=== PATIENT | male | born 1955 | race Caucasian/White ===

== ENCOUNTER 2019-05-25 06:06 | Emergency (ER) | payer SELFPAY ==
[2019-05-25] MEDS ORDERED: FAMOTIDINE IV PREMIX 50 ML IVPB ONE (06:29)
[2019-05-25] MEDS: methylPREDNISolone SODIUM SUC 125 MG/2 ML VIAL IV ONE (06:31)
[2019-05-25] MEDS: EPINEPHrine HCL AMP 1 MG/ML AMP IM ONE (06:31)
[2019-05-25] MEDS: FAMOTIDINE IV PREMIX 20 MG in PREMIX BAG 1 BAG IVPB ONE (06:32)
--- NOTE | 2019-05-25 06:32 | ED.PDOC ---
History of Present Illness - General Chief Complaint: Allergic Reaction Stated Complaint: swollen tongue Time Seen by Provider: 05/25/19 06:07 - History of Present Illness Initial Comments: Patient presents for evaluation of angioedema that started around midnight. Initially was on lateral margin of left side of tongue and now has progressed to entire tongue and working posteriorly. He has had difficulty tolerating secretions from the swelling. States his breathing is currently okay. Does take lisinopril. States that this has happened once before. Denies any other complaints. Allergies/Adverse Reactions: Allergies NO KNOWN ALLERGY Allergy (Verified 03/24/15 08:06) Home Medications: Ambulatory Orders Hctz 25 mg/Triamterene 37.5 mg [Maxzide-25] 1 ea PO DAILY 03/20/15 Lisinopril 20 mg PO BID 03/20/15 Lovastatin 20 mg PO BEDTIME 03/20/15 Metformin HCl [Metformin HCl ER] 500 mg PO DAILY 03/20/15 Review of Systems - Review of Systems Unable to Obtain Due To: clinical condition Past Medical History (General) - Patient Medical History Hx Cardiac Disorders: - carlee cholesterol Hx Hypertension: Yes Hx Diabetes: Yes - Vaccination History Hx Tetanus, Diphtheria Vaccination: - unknown Hx Influenza Vaccination: No Hx Pneumococcal Vaccination: No - Social History Hx Tobacco Use: Yes Hx Alcohol Use: Yes Hx Substance Use: No Hx Substance Use Treatment: No Hx Depression: No - Female History Patient : No Family Medical History - Family History Mother Family History: Unknown Physical Exam - Physical Exam General Appearance: Alert, Obvious distress, Ill Appearing Eyes, Ears, Nose, Throat Exam: other - Angioedema involving entire tongue. spitting secretions Neck: full range of motion, supple Respiratory: chest non-tender, lungs clear, normal breath sounds, no respiratory distress, no accessory muscle use Cardiovascular/Chest: regular rate, rhythm, no edema, no gallop, no JVD Gastrointestinal/Abdominal: non tender, soft Rectal Exam: deferred Neurologic: alert, normal mood/affect, oriented x 3 Progress - Progress Progress: 05/25/19 06:30 Patient presented for evaluation of tongue swelling and difficulty tolerating secretions. He is saturating well on room air however he is not tolerating secretions concerning for progressive worsening of the angioedema (likely SANDY-I induced). Discussed immediate transfer for ICU monitoring. Will not intubate as airway is protected at this time and large tongue will likely occlude airway. Has larger neck circumference making high risk intubation. Would be emergent cricothyroidomy if necessary. No anesthesia or surgery in house at this time. Patient discussed with ER Physician in [place], who accepts patient. [facility] contacts. IM epi, Solumedrol IV and Pepcid IV ordered. Patient updated on plan of care. Will transfer for definitive management and ICU monitoring. Departure - Departure Clinical Impression: Angioedema Qualifiers: Encounter type: initial encounter Qualified Code(s): T78.3XXA - Angioneurotic edema, initial encounter Time of Disposition: 06:32 Disposition: Transfer to Hospital Condition: Fair Departure Forms: ED Discharge - Pt. Copy, Patient Portal Self Enrollment Referrals: Juan Childs III, MD [Primary Care Provider] - 1-2 Weeks Home Medications: Ambulatory Orders Hctz 25 mg/Triamterene 37.5 mg [Maxzide-25] 1 ea PO DAILY 03/20/15 Lisinopril 20 mg PO BID 03/20/15 Lovastatin 20 mg PO BEDTIME 03/20/15 Metformin HCl [Metformin HCl ER] 500 mg PO DAILY 03/20/15 Comments: Ryne Peguero D.O[facility] #[id number]
[2019-05-25 06:44] VITALS: TEMP 96.6
[2019-05-25 07:08] VITALS: BP 152/103; O2SAT 97
== END 2019-05-25 07:09 | disposition short-term general hospital (02) ==
LOC: ER 06:06
DX: T78.3XXA Angioneurotic edema, initial encounter (principal); R13.10 Dysphagia, unspecified; E78.00 Pure hypercholesterolemia, unspecified; I10 Essential (primary) hypertension; E11.9 Type 2 diabetes mellitus without complications; Z87.891 Personal history of nicotine dependence; Z79.84 Long term (current) use of oral hypoglycemic drugs; Z79.899 Other long term (current) drug therapy
CPT/HCPCS: J2930; J3490

== ENCOUNTER 2019-07-26 10:10 | Inpatient (IN) | payer SELFPAY ==
[2019-07-26] MEDS ORDERED: IPRATROPIUM/ALBUTEROL 3 ML VIAL NEB ONE (10:19)
--- NOTE | 2019-07-26 10:23 | ED.PDOC ---
History of Present Illness - General Time Seen by Provider: 07/26/19 10:18 Source: patient, Vital Signs reviewed Additional Information: this is a 63 year old male, with history of high blood pressure, and bordeline diabetic also patient is a former smoker patient presents to the ER with shortness of breath patient stated that he has been coughing for the past 3 days, low grade fever but no chills patient also endorsing that he cant lay flat he is concerned about possible pneumonia patient stated that he retained fluids no travels and no sick contacts no flu shot this year - History of Present Illness Timing/Duration: other - 3 days Worsening Factors: nothing Associated Symptoms: cough, fever/chills, shortness of breath Respiratory Risk Factors: no cause identified Allergies/Adverse Reactions: Allergies Lisinopril Allergy (Verified 05/25/19 06:34) Hydrocodone Adverse Reaction (Verified 07/26/19 10:30) Home Medications: Ambulatory Orders Hctz 25 mg/Triamterene 37.5 mg [Maxzide-25] 1 ea PO DAILY 03/20/15 Lisinopril 20 mg PO BID 03/20/15 Lovastatin 20 mg PO BEDTIME 03/20/15 Metformin HCl [Metformin HCl ER] 500 mg PO DAILY 03/20/15 Amlodipine Besylate 2.5 mg PO DAILY 05/25/19 Carvedilol 25 mg PO DAILY 05/25/19 Gabapentin [Neurontin] 600 mg PO DAILY 05/25/19 Omeprazole 10 mg PO 05/25/19 Review of Systems - Review of Systems Constitutional: States: no symptoms reported EENTM: States: no symptoms reported. Denies: eye pain, blurred vision, tearing, double vision, ear pain, ear discharge, nose pain, nose congestion, throat pain, throat swelling, mouth pain, mouth swelling Respiratory: States: cough, orthopnea, short of breath Cardiology: Denies: chest pain, edema, palpitations, syncope Gastrointestinal/Abdominal: Denies: abdominal pain, constipation, diarrhea, nausea, vomiting Genitourinary: Denies: discharge, dysuria, frequency, hematuria, pain Musculoskeletal: Denies: back pain, gout, joint pain, joint swelling, muscle pain, neck pain Skin: Denies: change in color, change in hair/nails, dryness, lesions, lumps, rash Neurological: Denies: emotional problems, headache, numbness, paresthesia, pre- existing deficit, tingling, tremors, weakness Endocrine: Denies: excessive sweating, flushing, intolerance to cold, intolerance to heat, increased hunger, increased thirst, increased urine, unexplained weight gain, unexplained weight loss Hematologic/Lymphatic: Denies: blood clots, easy bleeding, easy bruising, swollen glands Past Medical History (General) - Patient Medical History Hx Cardiac Disorders: - carlee cholesterol Hx Hypertension: Yes Hx Diabetes: Yes Hx Cancer: Yes - Skin - Vaccination History Hx Tetanus, Diphtheria Vaccination: - unknown Hx Influenza Vaccination: No Hx Pneumococcal Vaccination: No - Social History Hx Tobacco Use: Yes Hx Alcohol Use: Yes Hx Substance Use: No Hx Substance Use Treatment: No Hx Depression: No - Female History Patient : No Family Medical History - Family History Mother Family History: Unknown Physical Exam - Physical Exam General Appearance: Alert, Well Developed, Well Groomed, Well Hydrated, Well Nourished Eye Exam: bilateral normal ENT Exam: normal ENT inspection, hearing grossly normal, TMs normal Neck: non-tender, full range of motion, supple, normal inspection, trachea midline Respiratory: no respiratory distress, no accessory muscle use, rhonchi - left lung field Cardiovascular/Chest: normal peripheral pulses, regular rate, rhythm, no edema, no gallop, no JVD, no murmur Gastrointestinal/Abdominal: normal bowel sounds, non tender, soft, no organomegaly, no pulsatile mass Neurologic: community director II-XII nml as tested, no motor/sensory deficits, alert, normal mood/affect, oriented x 3 Skin Exam: normal color, warm/dry Progress - Progress Progress: 07/26/19 10:54 patient is able to speak in long sentences patient doesnt appear toxic. I will ordered duoneb, labs, flu test and chest x rays patient ekg showed normal sinus rhythm with no evidence of acute ischemia and a heart rate of 89 07/26/19 11:44 i was looking at patient labs work and it seemed that patient has some sort of acute kidney injury. my initial plan was to treat patient as c copd exacerbation or since patient is on SANDY inhibitors as a culprit for patient coughs but after looking at the cmp I decided to consult with the hospitalist patient finally told me that some years ago his suffered from Pneumonia and that he developed renal failure as but that this kidney were great but i told him that his creatinine looks worse than the last time that he was seen here patient will be admitted Departure - Departure Clinical Impression: Cough due to SANDY inhibitor Renal failure Qualifiers: Renal failure chronicity: acute on chronic Acute renal failure type: unspecified Chronic kidney disease stage: unspecified stage Qualified Code(s): N17.9 - Acute kidney failure, unspecified; N18.9 - Chronic kidney disease, unspecified COPD (chronic obstructive pulmonary disease) Qualifiers: COPD type: unspecified COPD Qualified Code(s): J44.9 - Chronic obstructive pulmonary disease, unspecified Disposition: Admit Patient Condition: Fair Referrals: Juan Childs III, MD [Primary Care Provider] - 1-2 Weeks Home Medications: Ambulatory Orders Hctz 25 mg/Triamterene 37.5 mg [Maxzide-25] 1 ea PO DAILY 03/20/15 Lisinopril 20 mg PO BID 03/20/15 Lovastatin 20 mg PO BEDTIME 03/20/15 Metformin HCl [Metformin HCl ER] 500 mg PO DAILY 03/20/15 Amlodipine Besylate 2.5 mg PO DAILY 05/25/19 Carvedilol 25 mg PO DAILY 05/25/19 Gabapentin [Neurontin] 600 mg PO DAILY 05/25/19 Omeprazole 10 mg PO 05/25/19 Decision To Admit - Decistion To Admit Decision to Admit Reason: Admit from ER Decision to Admit Date: 07/26/19 Decision to Admit Time: 11:48
--- NOTE | 2019-07-26 10:55 | RAD ---
EXAM DESCRIPTION: Chest,1 View CLINICAL HISTORY: 63 years Male, shortness of breath COMPARISON: June 02, 2015, April 26, 2019, TECHNIQUE: AP portable chest. FINDINGS: Portable single view of the chest demonstrates a fair inspiration. Left lung remains essentially clear. Vascularity is normal and heart size normal allowing for the later portable film technique. Slightly coarsened markings in the medial right lung base noted. Minimal atelectasis or bronchopneumonia should be considered but there is no loss of the right heart border or diaphragm margin. No pleural effusion seen. IMPRESSION: Fair inspiration with slightly coarsened infrahilar markings on the right suggesting minimal atelectasis or crowded markings or less likely minimal bronchopneumonia. Electronically signed by: Abe Johnson MD 07/26/2019 10:53 AM [facility]
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
[2019-07-26] MEDS ORDERED: SODIUM CHLORIDE 0.9% (FLUSH) 10 ML SYG IV PRN (14:04)
[2019-07-26] MEDS ORDERED: ONDANSETRON INJ 4 MG/2 ML VIAL IV PRN (14:04)
[2019-07-26] MEDS ORDERED: ALBUTEROL SULFATE 2.5 MG/3 ML VIAL NEB PRN (14:04)
[2019-07-26] MEDS ORDERED: DEXTROSE 10% 500ML IVPB PRN (14:14)
[2019-07-26] MEDS ORDERED: GLUCAGON INJ 1 MG VIAL SUBCU PRN (14:14)
[2019-07-26] MEDS: IPRATROPIUM/ALBUTEROL 3 ML VIAL INH SCH ×2 (16:56→20:25)
[2019-07-26] MEDS ORDERED: methylPREDNISolone SODIUM SUC 125 MG/2 ML VIAL IV ONE (17:48)
[2019-07-26] MEDS ORDERED: BENZONATATE PERLES 100 MG CAP PO PRN (17:50)
[2019-07-26] MEDS ORDERED: BENZOCAINE-MENTH LOZ (CEPACOL) 1 EA LOZ MT PRN (17:50)
[2019-07-26] MEDS: IV SET AND CAP CHANGE INJ INJ SCH (17:58)
[2019-07-26] MEDS: INSULIN LISPRO 100 UNITS/ML PEN SUBCU SCH ×2 (17:59→22:27)
[2019-07-26] MEDS ORDERED: SODIUM CHL 0.9% 50ML MIN-BAG+ 50 ML IVPB ONE (18:01)
[2019-07-26] MEDS ORDERED: cefTRIAXone SODIUM 1 GM VIAL ONE (18:02)
[2019-07-26] MEDS: cefTRIAXone SODIUM 1 GM in SODIUM CHL 0.9% 50ML MIN-BAG+ 50 ML IVPB SCH (18:04)
[2019-07-26] MEDS ORDERED: SODIUM BICARBONATE VIAL 50 MEQ/50 ML VIAL ONE ×2 (18:14→18:18)
[2019-07-26] MEDS ORDERED: DEXTROSE 5% 1000ML 1,000 ML IVS ONE ×2 (18:14→18:17)
[2019-07-26] MEDS: SODIUM BICARBONATE VIAL 75 MEQ in DEXTROSE 5% 1000ML 1,000 ML IVS PRN (18:39)
[2019-07-26] MEDS ORDERED: SODIUM CHLORIDE 0.9% 250ML 250 ML ONE (20:06)
[2019-07-26] MEDS ORDERED: AZITHROMYCIN IV 500 MG VIAL IVPB ONE (20:06)
[2019-07-26] MEDS: AZITHROMYCIN IV 500 MG in SODIUM CHLORIDE 0.9% 250ML 250 ML IVPB SCH (20:10)
[2019-07-26] MEDS: SODIUM CHLORIDE 0.9% (FLUSH) 10 ML SYG IV SCH (22:29)
[2019-07-26] MEDS: ENOXAPARIN SODIUM 30 MG/0.3 ML SYG SUBCU SCH (22:29)
--- NOTE | 2019-07-27 06:25 | RAD ---
EXAM DESCRIPTION: Chest,2 Views CLINICAL HISTORY: copd COMPARISON: Previous study July 26, 2019 TECHNIQUE: PA/lateral FINDINGS: Heart is prominent with increased pulmonary vascularity. No pleural effusion or pneumothorax. Wedgelike atelectasis in the lung bases. Lateral view shows intact sternum and spurring in the mid to lower T-spine. IMPRESSION: No acute process is identified in the chest. Electronically signed by: Avel Montalvo MD 07/27/2019 6:23 AM [facility] [employer]
[2019-07-27] MEDS: INSULIN LISPRO 100 UNITS/ML PEN SUBCU SCH ×4 (07:58→20:55)
[2019-07-27] MEDS: IPRATROPIUM/ALBUTEROL 3 ML VIAL INH SCH ×4 (08:21→20:08)
[2019-07-27] MEDS ORDERED: SODIUM BICARBONATE VIAL 50 MEQ/50 ML VIAL ONE (08:28)
[2019-07-27] MEDS ORDERED: DEX 5% W/NACL 0.9% 1000ML 0 ML IVS ONE (08:29)
[2019-07-27] MEDS ORDERED: DEXTROSE 5% 1000ML 1,000 ML IVS ONE (08:32)
[2019-07-27] MEDS: SODIUM BICARBONATE VIAL 75 MEQ in DEXTROSE 5% 1000ML 1,000 ML IVS PRN ×2 (08:33→08:46)
[2019-07-27] MEDS: GABAPENTIN 300 MG CAP PO SCH (08:50)
[2019-07-27] MEDS: CARVEDILOL 12.5 MG TAB PO SCH (08:50)
[2019-07-27] MEDS: LINAGLIPTIN 5 MG TAB PO SCH (08:50)
[2019-07-27] MEDS: SODIUM CHLORIDE 0.9% (FLUSH) 10 ML SYG IV SCH ×2 (08:50→20:40)
--- NOTE | 2019-07-27 14:29 | US ---
EXAM DESCRIPTION: Renal: Ultrasound. CLINICAL HISTORY: 63 years Male ARF COMPARISON: None TECHNIQUE: Transcutaneous scanning: Two-dimensional and Doppler modes. FINDINGS: Right kidney measures 10.2 x 6.0 x 6.0. cm; mid-renal cortical thickness 11 mm. . Increased cortical echogenicity more than the liver. No hydronephrosis No echogenic stones. Lobulated contour of the kidney with no perinephric fluid. Normal vascularity. Proximal ureter not visualized.. Left kidney measures 10.9 x 6.4 x 6.0 cm; mid-renal cortical thickness 14 mm.. Increased echogenicity more than the liver. No hydronephrosis. No echogenic stones. Smooth contour of the kidney with no perinephric fluid. Normal vascularity.. Proximal ureter not seen.. Urinary bladder was visualized. 3.2 x 3.1 x 1.8 cm, equals volume 9.2 mL. Ureteral jet in the bladder not seen on color Doppler. Patient did not void. Abdominal aorta: Normal caliber from the proximal segment to the distal bifurcation. Greatest diameter 2.1 cm. IMPRESSION: 1. Bilateral kidneys with cortical thinning more right than left. Also right renal capsule is lobulated. Bilateral renal cortex increased echogenicity greater than the liver indicating moderate disease. No echogenic stones or hydronephrosis or perirenal fluid bilaterally. Ureters are not seen bilaterally. 2. Minimal area in the urinary bladder with no voiding. Intravesicular ureteral jets were not seen. No free fluid around the gallbladder. Electronically signed by: Jenaro Samano MD 07/27/2019 2:27 PM RN [facility]
[2019-07-27] MEDS ORDERED: cefTRIAXone SODIUM 1 GM VIAL ONE (16:11)
[2019-07-27] MEDS ORDERED: SODIUM CHL 0.9% 50ML MIN-BAG+ 50 ML IVPB ONE (16:11)
[2019-07-27] MEDS: cefTRIAXone SODIUM 1 GM in SODIUM CHL 0.9% 50ML MIN-BAG+ 50 ML IVPB SCH (17:48)
[2019-07-27] MEDS ORDERED: SODIUM CHLORIDE 0.9% 250ML 250 ML ONE (19:15)
[2019-07-27] MEDS ORDERED: AZITHROMYCIN IV 500 MG VIAL IVPB ONE (19:16)
[2019-07-27] MEDS: AZITHROMYCIN IV 500 MG in SODIUM CHLORIDE 0.9% 250ML 250 ML IVPB SCH (19:37)
[2019-07-27] MEDS: ENOXAPARIN SODIUM 30 MG/0.3 ML SYG SUBCU SCH (20:39)
[2019-07-28] MEDS ORDERED: SODIUM BICARBONATE VIAL 50 MEQ/50 ML VIAL ONE ×2 (00:12→15:52)
[2019-07-28] MEDS ORDERED: DEXTROSE 5% 1000ML 1,000 ML IVS ONE ×2 (00:12→15:52)
[2019-07-28] MEDS: SODIUM BICARBONATE VIAL 75 MEQ in DEXTROSE 5% 1000ML 1,000 ML IVS PRN ×2 (00:31→16:02)
[2019-07-28] MEDS: INSULIN LISPRO 100 UNITS/ML PEN SUBCU SCH ×4 (07:19→21:25)
[2019-07-28] MEDS: IPRATROPIUM/ALBUTEROL 3 ML VIAL INH SCH ×4 (08:13→20:04)
--- NOTE | 2019-07-28 08:31 | PN ---
SUPERVISING PHYSICIAN: Abe Chang MD DATE: 07/27/19 SUBJECTIVE: The patient is sitting up in bed. He is talking to his daughter. He feels much better than he did yesterday. He still gets quite short of breath and has a lot of weakness, but otherwise denies chest pain, nausea, vomiting. OBJECTIVE: VITAL SIGNS: Temperature 97.5. Heart rate 80. Blood pressure 135/79. Respiratory rate 20. O2 saturation 94% on 2 liters nasal cannula. RESPIRATORY: Somewhat diminished at the bases. Otherwise, clear to auscultation. CARDIAC: Regular rate and rhythm. GASTROINTESTINAL: Abdomen is soft, nondistended, nontender. Bowel sounds are positive. NEUROLOGIC: Awake, alert and oriented times three. LABORATORY: WBCs have improved to 10,100 with hemoglobin 8.8, hematocrit 26.4. He has a left shift on his differential. His blood sugars have run between 178 and 206. Electrolytes are basically within normal limits with the exception of his calcium is low at 7.8. BUN 54, creatinine has worsened to 4.64. MICROBIOLOGY: Preliminary blood cultures show no growth after 24 hours. RADIOLOGY: Chest x-ray show no acute process identified in the chest. His renal ultrasound shows 1) Bilateral kidneys with cortical thinning, more right than left. Also, right renal calculus, lobulated. Bilateral renal cortex increased echogenicity greater than the liver, indicating moderate disease. No echogenic stones or hydronephrosis or perirenal fluid bilaterally. Ureters are not seen bilaterally. 2) Minimal area in the urinary bladder with no voiding. Intravesicular ureteral jets were not seen. No free fluid around the gallbladder. All other labs and films have been reviewed via the EMR. ASSESSMENT: 1. Acute on chronic renal failure with baseline creatinine of approximately 1.9. His admitting creatinine was 3.66. 2. Chronic obstructive pulmonary disease with acute exacerbation, with. 3. Diabetes mellitus, type 2. concerns for developing community acquired pneumonia. 4. Hypertension. 5. Peripheral neuropathy. PLAN: We will continue present supportive care. I have spoken to Dr. Peguero, supervisor frame sample and pattern from [place], and he recommended we do a renal ultrasound, which I have done. He also recommended that we put some D5W with bicarb for his IV fluids to assist with the acidosis and to normalize kidney function. I did start him on a bicarb drip last night. I will repeat his lab in the morning. He will need to see Dr. Peguero after discharge. I will continue to treat his chronic obstructive pulmonary disease aggressively. His breathing is much improved, so we will not continue Solu-Medrol, but his antibiotics will be continued. We will continue to monitor the patient closely and follow as needed. #[id number] [facility]
[2019-07-28] MEDS: GABAPENTIN 300 MG CAP PO SCH (09:31)
[2019-07-28] MEDS: LINAGLIPTIN 5 MG TAB PO SCH (09:31)
[2019-07-28] MEDS: SODIUM CHLORIDE 0.9% (FLUSH) 10 ML SYG IV SCH ×2 (09:31→20:36)
[2019-07-28] MEDS: CARVEDILOL 12.5 MG TAB PO SCH (09:31)
[2019-07-28] MEDS ORDERED: MAGNESIUM SULFATE PREMIX 4GM 4 GM in PREMIX BAG 1 BAG IVPB ONE (11:26)
[2019-07-28] MEDS ORDERED: MAGNESIUM SULFATE PREMIX 2GM 0 ML IVPB ONE (11:47)
[2019-07-28] MEDS ORDERED: MAGNESIUM SULFATE PREMIX 4GM 50 ML IVPB ONE (12:01)
[2019-07-28] MEDS: ACETAMINOPHEN 325 MG TAB PO PRN (16:25)
[2019-07-28] MEDS ORDERED: SODIUM CHL 0.9% 50ML MIN-BAG+ 50 ML IVPB ONE (17:24)
[2019-07-28] MEDS ORDERED: cefTRIAXone SODIUM 1 GM VIAL ONE (17:24)
[2019-07-28] MEDS: cefTRIAXone SODIUM 1 GM in SODIUM CHL 0.9% 50ML MIN-BAG+ 50 ML IVPB SCH (17:27)
[2019-07-28] MEDS ORDERED: AZITHROMYCIN IV 500 MG VIAL IVPB ONE (19:44)
[2019-07-28] MEDS ORDERED: SODIUM CHLORIDE 0.9% 250ML 250 ML ONE (19:44)
[2019-07-28] MEDS: AZITHROMYCIN IV 500 MG in SODIUM CHLORIDE 0.9% 250ML 250 ML IVPB SCH (20:07)
[2019-07-28] MEDS: ENOXAPARIN SODIUM 30 MG/0.3 ML SYG SUBCU SCH (20:35)
[2019-07-29] MEDS: INSULIN LISPRO 100 UNITS/ML PEN SUBCU SCH ×4 (07:23→21:17)
[2019-07-29] MEDS: ACETAMINOPHEN 325 MG TAB PO PRN (07:50)
--- NOTE | 2019-07-29 08:14 | PN ---
SUPERVISING PHYSICIAN: Abe Chang MD DATE: 07/28/19 SUBJECTIVE: The patient is sitting on the side of the bed. He is feeling much improved. We just got his kidney insufficiency and I discussed his lab results as well as his renal ultrasound. He denies and chest pain, shortness of breath, nausea or vomiting. . OBJECTIVE: VITAL SIGNS: Temperature 97.2. Heart rate 97. Blood pressure 153/83. Respiratory rate 20. O2 saturation 96% on 2 liters nasal cannula. RESPIRATORY: Essentially clear to auscultation bilaterally.. CARDIAC: Regular rate and rhythm. GASTROINTESTINAL: Abdomen is soft, nondistended, nontender. Bowel sounds are positive. EXTREMITIES: No cyanosis, clubbing, or edema. NEUROLOGIC: Awake, alert and oriented times three. LABORATORY: WBCs are 15,300 with hemoglobin 8.8, hematocrit 27.3. His blood sugars have run between 88 and 185. Electrolytes are basically within normal limits with the exception of his BUN of 62 and creatinine 4.1. He did have a magnesium of 1. Creatinine kinase is 180. CKMB is 9.7. Troponin 0.04. MICROBIOLOGY: Sputum culture is pending. Preliminary blood cultures show no growth after 48 hours. RADIOLOGY: Renal ultrasound shows: 1. Bilateral kidneys cortical thinning, more right than left. Also right renal capsule was lobulated, bilateral renal cortex increased echogenicity greater than the liver indicating moderate disease. No echogenic stones or hydronephrosis or perirenal fluid bilaterally. Ureters are not seen bilaterally. 2. Minimal area in the urinary bladder with no voiding. Intravesicular ureteral jets were not seen. No free fluid around the gallbladder. All other labs and films have been reviewed via the EMR. ASSESSMENT: 1. Acute on chronic renal failure with baseline creatinine of approximately 1.9. His admitting creatinine was 3.6. Today it was greater than 4. 2. Chronic obstructive pulmonary disease with acute exacerbation. 3. Diabetes mellitus, type 2. 4. Anemia most likely of chronic disease. 5. Hypertension. 6. Peripheral neuropathy. PLAN: We will continue present supportive care. At this point, I will continue running is D5W with bicarb. We may need to touch base with Dr. Peguero. tomorrow if he does not have a decrease in his creatinine. We will repeat his lab in the morning. We will monitor his blood cultures as well as his sputum culture. I will continue on aggressive pulmonary hygiene as well as antibiotics, Ceftriaxone and azithromycin. He will need to see Dr. Peguero on discharge as his kidney function is worsening and he has not seen a flight operations dispatch clerk in the past. At this point,we will continue to monitor closely and follow as needed. #[id number] [facility]
[2019-07-29] MEDS: LINAGLIPTIN 5 MG TAB PO SCH (09:00)
[2019-07-29] MEDS: CARVEDILOL 12.5 MG TAB PO SCH (09:01)
[2019-07-29] MEDS: SODIUM CHLORIDE 0.9% (FLUSH) 10 ML SYG IV SCH ×2 (09:01→20:01)
[2019-07-29] MEDS: GABAPENTIN 300 MG CAP PO SCH (09:01)
[2019-07-29] MEDS: IPRATROPIUM/ALBUTEROL 3 ML VIAL INH SCH ×4 (09:13→19:46)
[2019-07-29] MEDS ORDERED: DEXTROSE 5% 1000ML 1,000 ML IVS ONE ×2 (10:07→19:26)
[2019-07-29] MEDS ORDERED: SODIUM BICARBONATE VIAL 50 MEQ/50 ML VIAL ONE ×2 (10:07→19:27)
[2019-07-29] MEDS: SODIUM BICARBONATE VIAL 75 MEQ in DEXTROSE 5% 1000ML 1,000 ML IVS PRN (11:20)
[2019-07-29] MEDS ORDERED: SODIUM CHLORIDE 0.65% NASAL SPRAY 45 ML BTTL BNAS PRN (11:27)
--- NOTE | 2019-07-29 14:02 | RAD ---
EXAM DESCRIPTION: Chest,2 Views CLINICAL HISTORY: copd COMPARISON: July 27, 2019 FINDINGS: The cardiomediastinal silhouette is unremarkable. Subsegmental atelectasis or scarring in the lung bases, stable. No airspace consolidation or pleural effusion. The lungs are not hyperinflated. There is no pneumothorax or acute fracture. IMPRESSION: Bibasilar subsegmental atelectasis or scarring without acute thoracic abnormality or significant change from 2 days prior. Electronically signed by: Faisal Simmons MD 07/29/2019 2:01 PM CDT
[2019-07-29] MEDS: IV SET AND CAP CHANGE INJ INJ SCH (14:30)
[2019-07-29] MEDS ORDERED: SODIUM CHL 0.9% 50ML MIN-BAG+ 50 ML IVPB ONE (17:59)
[2019-07-29] MEDS ORDERED: cefTRIAXone SODIUM 1 GM VIAL ONE (17:59)
[2019-07-29] MEDS: cefTRIAXone SODIUM 1 GM in SODIUM CHL 0.9% 50ML MIN-BAG+ 50 ML IVPB SCH (18:09)
[2019-07-29] MEDS ORDERED: predniSONE 20 MG TAB PO ONE (18:21)
--- NOTE | 2019-07-29 19:24 | PN ---
SUPERVISING PHYSICIAN: Abe Chang MD DATE: 07/29/19 SUBJECTIVE: The patient is still having some shortness of breath with minimal exertion. He has not had any chest pains, palpations, tachycardia, no nausea or vomiting. With ambulation, he does get short of breath even on oxygen. OBJECTIVE: VITAL SIGNS: Temperature 98.1. Pulse 90. Blood pressure 136/81. Respirations 18. Saturation 91% on 3 liters nasal cannula. I&Os show negative balance of 305. Weight 106.6 kg. GENERAL: The patient is sitting on the edge of the bed resting comfortably. He is a little bit short of breathing, but in no acute distress. He is alert. CHEST: Lung sounds diminished towards the bases. No audible wheezing or rhonchi. HEART: Regular rate and rhythm. ABDOMEN: Soft, nontender. Positive bowel sounds. EXTREMITIES: No edema. NEUROLOGIC: Alert and oriented times three. LABORATORY: White count today 8,500, hemoglobin 8.4, hematocrit 25.3. RBC indices show a normocytic/normochromic presentation with a platelet count of 216,000. Differential without a left shift today. Chemistries show normal electrolytes with creatinine 4.25, slightly improved from yesterday from 4.646. BUN 62, which is fairly stable. His other chemistries including liver functions are within normal limits. Albumin is low at 3.1. Magnesium normal at 1.8. Calcium 7.9 but with hypoalbuminemia at 3.1 calculates to correction of 8.2. Blood sugars range between 82 and 176. MICROBIOLOGY: Sputum culture pending. Blood cultures remain negative after 3 days. RADIOLOGY: Repeat chest x-ray this morning per radiologic interpretation shows bibasilar subsegmental atelectasis or scarring without acute thoracic abnormality. No significant changes from 2 days ago. Cardiac silhouette unremarkable. ASSESSMENT: 1. Acute on chronic renal failure with baseline creatinine of approximately 1.9 with creatinine continuing to show elevation, but slightly improved with sodium bicarb infusion. 2. Chronic obstructive pulmonary disease with exacerbation, still requiring oxygen with exertion. 3. Diabetes mellitus, type 2, stable. 4. Anemia, normocytic/normochromic, likely of chronic disease secondary to kidney function. 5. Hypertension, stable. 6. Peripheral neuropathy, chronic. PLAN: We will continue with bicarb for 12 hours and repeat BMP this afternoon and if he is showing improvement, continue until in the morning, we will readdress his IV fluids after that point. We will await his culture results to further target antibiotic therapy as needed. He continues to be on aggressive pulmonary hygiene and antibiotic coverage with Rocephin and azithromycin. I anticipate if he continues to show improvement to hopefully be able to be discharge in the next 24 to 48 hours. I did order an ambulation study to see if he will qualify for oxygen, however, the patient does have financial difficulties and I am not sure if he would be able to afford oxygen if he is not able to have financial assistance. Alexandra I believe has been consulted. We will continue to followup with her. Until the patient can transition to outpatient management, we will continue to monitor and treat as needed. #[id number] [facility]
[2019-07-29] MEDS ORDERED: SODIUM CHLORIDE 0.9% 250ML 250 ML ONE (19:27)
[2019-07-29] MEDS ORDERED: AZITHROMYCIN IV 500 MG VIAL IVPB ONE (19:27)
[2019-07-29] MEDS: AZITHROMYCIN IV 500 MG in SODIUM CHLORIDE 0.9% 250ML 250 ML IVPB SCH (19:57)
[2019-07-29] MEDS: ENOXAPARIN SODIUM 30 MG/0.3 ML SYG SUBCU SCH (20:01)
[2019-07-30] MEDS: SODIUM BICARBONATE VIAL 75 MEQ in DEXTROSE 5% 1000ML 1,000 ML IVS PRN (02:29)
[2019-07-30] MEDS: INSULIN LISPRO 100 UNITS/ML PEN SUBCU SCH ×3 (07:26→16:48)
[2019-07-30] MEDS ORDERED: ACETAMINOPHEN 325 MG TAB PO ONE (08:16)
[2019-07-30] MEDS ORDERED: diphenhydrAMINE HCL 50 MG/ML VIAL IV ONE (08:16)
[2019-07-30] MEDS ORDERED: methylPREDNISolone SODIUM SUC 40 MG/ML VIAL IV ONE (08:16)
[2019-07-30] MEDS ORDERED: SODIUM CHLORIDE 0.9% 500ML 500 ML IVS SCH (08:30)
[2019-07-30] MEDS: LINAGLIPTIN 5 MG TAB PO SCH (08:41)
[2019-07-30] MEDS: GABAPENTIN 300 MG CAP PO SCH (08:41)
[2019-07-30] MEDS: CARVEDILOL 12.5 MG TAB PO SCH (08:42)
[2019-07-30] MEDS: IPRATROPIUM/ALBUTEROL 3 ML VIAL INH SCH ×3 (08:45→16:16)
[2019-07-30] MEDS ORDERED: predniSONE 20 MG TAB PO SCH (09:00)
[2019-07-30] MEDS: SODIUM CHLORIDE 0.9% (FLUSH) 10 ML SYG IV SCH (10:15)
[2019-07-30] MEDS ORDERED: FUROSEMIDE INJ 20 MG/2 ML VIAL IV ONE (13:52)
[2019-07-30 16:39] VITALS: O2SAT 95
[2019-07-30] MEDS ORDERED: SODIUM CHLORIDE 0.9% (FLUSH) 10 ML SYG IV ONE (17:19)
[2019-07-30] MEDS ORDERED: AZITHROMYCIN 250 MG TAB PO ONE (18:01)
[2019-07-30 18:18] VITALS: BP 192/90; TEMP 98
--- NOTE | 2019-08-17 09:26 | DS ---
SUPERVISING PHYSICIAN: James Carver MD ADMISSION DIAGNOSIS: 1. Acute on chronic renal failure. His baseline creatinine is 1.8 to 1.9. Admitting creatinine was 3.66. 2. Chronic obstructive pulmonary disease with acute exacerbation with concerns for developing community acquired pneumonia in a patient with a history of smoking although quit approximately one year ago. 3. Diabetes mellitus, type 2. 4. Hypertension. 5. Peripheral neuropathy. DISCHARGE DIAGNOSIS: 1. Acute on chronic renal failure with baseline creatinine of approximately 1.9 with creatinine continuing to show elevation, but slightly improved with sodium bicarb infusion. 2. Chronic obstructive pulmonary disease with exacerbation, still requiring oxygen with exertion. 3. Diabetes mellitus, type 2, stable. 4. Anemia, normocytic/normochromic, likely of chronic disease secondary to kidney function. 5. Hypertension, stable. 6. Peripheral neuropathy, chronic. REASON FOR HOSPITALIZATION: This is a 63-year-old male patient who presented to the Emergency Room with shortness of breath that had been going on for about 3 to 4 days. He also had low grade fever. He has also had a cough that was unproductive. He felt really run down and has also felt like he was somewhat swollen in his ankles. In the Emergency Room, his vital signs were a temperature of 98.9, heart rate 85, blood pressure 102/66, respiratory rate 20, O2 saturation 95%. Lab was drawn. WBCs 14,300, hemoglobin 9.7, hematocrit 29.2. He had a left shift on his differential. Sodium was slightly low at 134. Calcium low at 8.2. BUN 39, creatinine 3.66. In the past, he has had a creatinine as high as 6 in 2016, but his baseline creatinine usually runs about 1.9. BNP 151. Blood cultures were drawn. Influenza A and B per PCR were both negative. Chest x-ray showed fair inspiration with slightly coarsened infrahilar markings on the right suggesting minimal atelectasis or crowded markings or less likely interval bronchopneumonia. In the Emergency Room, he was given fluids as well as azithromycin and ceftriaxone. He was also given breathing treatments. I was called for hospital admission. On admission to the floor, he did say he had had some issues with his kidneys in the past, but he had filled out paperwork for disability and he was waiting for the paperwork to come through so he could get a kidney workup. He denied any history of CHF. He did say he was a former smoker and he has been under a lot of stress lately as his of hepatitis C on July 06. LABORATORY: Initial white count was 14,300, hemoglobin 9.7, hematocrit 29.2, platelet count 214,000, left shift on differential. Prior to discharge, final hemoglobin was 7.9 and hematocrit 24.0. White count normalized to 8,500 with no left shift. Chemistries on discharge showed creatinine 3.86 with normal electrolytes. Blood sugar was between 169 and 272. MICROBIOLOGY: Sputum culture showed Granulicatella adiacens which susceptibilities are not usually performed on as there is no criteria of susceptibility. Influenza A and B by PCR was negative. He had two sets of blood cultures that were negative at 5 days. RADIOLOGY: Chest x-ray initially on admission showed questionable minimal bronchial pneumonia. Final chest x-ray on 07/29/19 per radiologic interpretation showed bibasilar subsegmental atelectasis or scarring without acute thoracic abnormality or significant changes from 2 days prior. He had an echocardiogram that showed a normal ejection fraction of 65-70%. He had a renal ultrasound with bilateral kidneys showing cortical thinning, more on the right than the left. Also noted right renal capsule is lobulated with bilateral renal cortex increased echogenicity greater than the liver indicating moderate disease. No echogenic stones or hydronephrosis or perirenal fluid bilaterally. Ureters were not seen bilaterally. Minimal area in the urinary bladder with no voiding. Intravesicular ureteral jets were not seen. No free fluid around the gallbladder. EKG showed normal sinus rhythm with ST or T-wave changes to indicate acute ischemia or injury pattern. HOSPITAL COURSE: Mr. Zacarias was admitted for acute renal failure and chronic obstructive pulmonary disease exacerbation. He was started on IV fluids including sodium bicarbonate infusion as well as treated for pneumonia with Rocephin, azithromycin and aggressive pulmonary hygiene. He was not requiring oxygen on discharge. His kidney function had stabilized although creatinine levels continued to be elevated, but had improved dramatically from admission of initial creatinine of 4.64. It was felt he had improved clinically well enough to continue with outpatient management. DISCHARGE ASSESSMENT: VITAL SIGNS: Stable with temperature 98, pulse 94, blood pressure a little elevated at 192/90, but he was a little anxious prior to discharge. Prior to that, his blood pressure was 158/71. Heart rate 72, respirations 16. Saturation 95% on room air. GENERAL: The patient was in no acute distress, alert. CHEST: Lung sounds diminished towards the bases, otherwise no audible wheezing or rhonchi. HEART: Regular rate and rhythm. ABDOMEN: Soft, nontender, positive bowel sounds. EXTREMITIES: No edema. NEUROLOGIC: Alert and oriented times 3. PLAN: Mr. Zacarias was discharged on 07/30/19 to continue treatment of underlying pneumonia with cefdinir for antibiotic coverage as well as tapering dose of prednisone. He was not requiring oxygen at time of discharge. He is to followup with Dr. Childs on 08/02/19 and will need followup with Dr. Peguero or renal specialist accordingly. Diet on discharge was normal diet as tolerated. Increase activity as tolerated. MEDICATIONS PRESCRIBED ON DISCHARGE: 1. Cefdinir 300 mg once daily, #10. 2. Prednisone tapering dose, #30, 10 mg tablets as directed. All other medications prior to discharge were continued as is. CONDITION ON DISCHARGE: Stable and improved. DISPOSITION: The patient was discharged home. #[id number] [facility]
== END 2019-07-30 18:35 | disposition home or self-care (01) | DRG 683 ==
LOC: ER 10:10 → OBSVTOIN 12:37 → MS 12:37
PROVIDERS: ADMIT Nurse Practitioner Acute Care; ATTEND Nurse Practitioner Family
PROC: 30233N1 Transfusion of Nonautologous Red Blood Cells into Peripheral Vein, Percutaneous Approach (ICD-10-PCS; principal; 2019-07-30)
DX: N17.9 Acute kidney failure, unspecified (principal); E87.1 Hypo-osmolality and hyponatremia; J44.1 Chronic obstructive pulmonary disease with (acute) exacerbation; J44.0 Chronic obstructive pulmonary disease with (acute) lower respiratory infection; D63.1 Anemia in chronic kidney disease; I12.9 Hypertensive chronic kidney disease with stage 1 through stage 4 chronic kidney disease, or unspecified chronic kidney disease; E11.22 Type 2 diabetes mellitus with diabetic chronic kidney disease; N18.9 Chronic kidney disease, unspecified; E11.42 Type 2 diabetes mellitus with diabetic polyneuropathy; E78.00 Pure hypercholesterolemia, unspecified; Z90.49 Acquired absence of other specified parts of digestive tract; Z88.5 Allergy status to narcotic agent; Z88.8 Allergy status to other drugs, medicaments and biological substances; Z79.899 Other long term (current) drug therapy; Z87.891 Personal history of nicotine dependence; Z79.84 Long term (current) use of oral hypoglycemic drugs

== ENCOUNTER 2020-05-10 12:25 | Emergency (ER) | payer MEDICARE, MEDICAID ==
[2020-05-10] MEDS ORDERED: LIDOCAINE 2% W/ EPINEPHRINE 20 ML VIAL INJ ONE (12:52)
--- NOTE | 2020-05-10 13:08 | ED.PDOC ---
History of Present Illness - General Chief Complaint: Post Op Problems Time Seen by Provider: 05/10/20 13:05 Source: patient Exam Limitations: no limitations - History of Present Illness Initial Comments: The patient is a 64 year old male who presents to the ED with bleeding wound to the left temporal region. He states that he recently had a cancer removed with Dr. Chandler and when he woke this morning he noticed blood on his sheets and pillow. he was able to stop the bleeding with direct pressure but while he was at dialysis this afternoon he started having bleeding again. he does not feel weak, dizzy, or short of breath. No other complaints at this time. Allergies/Adverse Reactions: Allergies Lisinopril Allergy (Verified 05/25/19 06:34) Hydrocodone Adverse Reaction (Verified 07/26/19 10:30) Home Medications: Ambulatory Orders Carvedilol 25 mg PO DAILY 05/25/19 Gabapentin [Neurontin] 600 mg PO DAILY 05/25/19 Hydralazine HCl [Hydralazine Hydrochloride] 25 mg PO BID 07/26/19 Linagliptin [Tradjenta] 5 mg PO DAILY 07/26/19 Cefdinir [Omnicef] 300 mg PO BID #10 cap 07/30/19 predniSONE [Prednisone] See Taper PO DAILY #30 tab 07/30/19 Review of Systems - Review of Systems Constitutional: Denies: chills, fever EENTM: States: no symptoms reported Respiratory: States: no symptoms reported Cardiology: States: no symptoms reported Gastrointestinal/Abdominal: States: no symptoms reported Genitourinary: States: no symptoms reported Musculoskeletal: States: no symptoms reported Skin: States: other - bleeding wound to left temporal scalp Neurological: States: no symptoms reported Endocrine: States: no symptoms reported Hematologic/Lymphatic: States: no symptoms reported Past Medical History (General) - Patient Medical History Hx Seizures: No Hx Stroke: No Hx of COPD: Yes Hx Cardiac Disorders: - carlee cholesterol Hx Hypertension: Yes Hx Diabetes: Yes - takes "a pill " Hx Cancer: Yes - Skin Hx MRSA: No - Vaccination History Hx Tetanus, Diphtheria Vaccination: - unknown Hx Influenza Vaccination: No Hx Pneumococcal Vaccination: No - Social History Hx Tobacco Use: Yes Hx Alcohol Use: Yes Hx Substance Use: No Hx Substance Use Treatment: No Hx Depression: No - Female History Patient : No Family Medical History - Family History Mother Family History: Unknown Physical Exam - Physical Exam General Appearance: No apparent distress Ears, Nose, Throat: hearing grossly normal Respiratory: no respiratory distress Neurologic: alert, oriented x 3 Skin Exam: other - 3cm circular excision wound to left temporal scalp. There is surgicel noted at the base of the wound. There is no active bleeding Progress - Progress Progress: 05/10/20 13:30 Patient reassessed, there is no active hemorrhage. Site of bleeding noted, there is underlying small branch of the temporal artery at the base of the wound. Discussed findings with Dr. Chandler. Given no ongoing bleeding there is no indication for acute intervention at this time. Will dress wound and continue outpatient follow up with surgery. Home care instructions and return indications reviewed. - Results/Orders Results/Orders: MDM: Patient presents with postoperative hemorrhage after excision of skin cancer. The wound is clean and dry without any active bleeding. Surgicel noted at the base of the wound. There is small pulsatile area that is likely branch of temporal artery but no active hemorrhage. Discussed with Dr. Chandler, will continue local wound care. Dressed with vaseline gauze and non-stick dressing. Discussed home care with the patient and reviewed return indications. Departure - Departure Clinical Impression: Postoperative hemorrhage Qualifiers: Surgical complication system/body Area: subcutaneous tissue Procedure type: dermatologic Qualified Code(s): L76.21 - Postprocedural hemorrhage of skin and subcutaneous tissue following a dermatologic procedure Time of Disposition: 13:32 Disposition: Discharge to Home or Self Care Condition: Fair Departure Forms: ED Discharge - Pt. Copy, Patient Portal Self Enrollment Instructions: Surgical Wound (DC), Wound Care (DC) Diet: resume usual diet Activity: increase activity as tolerated Referrals: Juan Childs III, MD [Primary Care Provider] - 1-2 Weeks Aren Chandler MD [Active Staff] - 1-2 Weeks Home Medications: Ambulatory Orders Carvedilol 25 mg PO DAILY 05/25/19 Gabapentin [Neurontin] 600 mg PO DAILY 05/25/19 Hydralazine HCl [Hydralazine Hydrochloride] 25 mg PO BID 07/26/19 Linagliptin [Tradjenta] 5 mg PO DAILY 07/26/19 Cefdinir [Omnicef] 300 mg PO BID #10 cap 07/30/19 predniSONE [Prednisone] See Taper PO DAILY #30 tab 07/30/19
[2020-05-10 13:59] VITALS: TEMP 98.2
[2020-05-10 14:20] VITALS: BP 128/70; O2SAT 95
== END 2020-05-10 13:58 | disposition home or self-care (01) ==
LOC: ER 12:25
DX: L76.21 Postprocedural hemorrhage of skin and subcutaneous tissue following a dermatologic procedure (principal); J44.9 Chronic obstructive pulmonary disease, unspecified; E78.00 Pure hypercholesterolemia, unspecified; I10 Essential (primary) hypertension; E11.9 Type 2 diabetes mellitus without complications; Z85.828 Personal history of other malignant neoplasm of skin; Z87.891 Personal history of nicotine dependence; Z79.899 Other long term (current) drug therapy; Z88.8 Allergy status to other drugs, medicaments and biological substances; Z88.5 Allergy status to narcotic agent

== ENCOUNTER 2020-05-11 05:18 | Emergency (ER) | payer MEDICARE, MEDICAID ==
[2020-05-11] MEDS ORDERED: LIDOCAINE 1% W/ EPINEPHRINE 20 ML VIAL INJ ONE (05:31)
--- NOTE | 2020-05-11 06:31 | ED.PDOC ---
History of Present Illness - General Chief Complaint: Skin/Abrasion/Tear Stated Complaint: surgical site to left head bleeding Time Seen by Provider: 05/11/20 06:04 Source: patient - History of Present Illness Initial Comments: The patient presents to the ED with surgical site bleeding. He recently underwent excision of left temporal skin malignancy with Dr. Chandler. He was seen earlier in the day for bleeding that was controlled with direct pressure. After discussions with surgery it was decided to dress and observe the wound. The patient states that this evening while he was sleeping he coughed and the bleeding started again. He does not feel weak, dizzy or short of breath. He complains of local pain to excision site. No other complaints at this time. Allergies/Adverse Reactions: Allergies Codeine Allergy (Verified 05/11/20 05:35) Lisinopril Allergy (Verified 05/11/20 05:35) Hydrocodone Adverse Reaction (Verified 07/26/19 10:30) Home Medications: Ambulatory Orders Carvedilol 25 mg PO DAILY 05/25/19 Gabapentin [Neurontin] 600 mg PO DAILY 05/25/19 Hydralazine HCl [Hydralazine Hydrochloride] 25 mg PO BID 07/26/19 Linagliptin [Tradjenta] 5 mg PO DAILY 07/26/19 Cefdinir [Omnicef] 300 mg PO BID #10 cap 07/30/19 predniSONE [Prednisone] See Taper PO DAILY #30 tab 07/30/19 Review of Systems - Review of Systems Constitutional: Denies: weakness EENTM: States: no symptoms reported Respiratory: States: no symptoms reported Cardiology: States: no symptoms reported Gastrointestinal/Abdominal: States: no symptoms reported Genitourinary: States: no symptoms reported Musculoskeletal: States: no symptoms reported Skin: States: other - bleeding wound to left temporal scalp Neurological: States: no symptoms reported Endocrine: States: no symptoms reported Hematologic/Lymphatic: States: no symptoms reported All other Systems: Reviewed and Negative Past Medical History (General) - Patient Medical History Hx Seizures: No Hx Stroke: No Hx Dementia: No Hx Asthma: No Hx of COPD: Yes Hx Cardiac Disorders: No - high cholesterol Hx Congestive Heart Failure: No Hx Pacemaker: No Hx Hypertension: Yes Hx Thyroid Disease: No Hx Diabetes: Yes - takes "a pill " Hx Gastroesophageal Reflux: No Hx Renal Disease: Yes - dialysis patient kidney failure Hx Cancer: Yes - Skin Hx of HIV: No Hx Hepatitis C: No Hx MRSA: No - Vaccination History Hx Tetanus, Diphtheria Vaccination: - unknown Hx Influenza Vaccination: No Hx Pneumococcal Vaccination: No - Social History Hx Tobacco Use: Yes Hx Alcohol Use: Yes Hx Substance Use: No Hx Substance Use Treatment: No Hx Depression: No - Female History Patient : No Family Medical History - Family History Mother Family History: Unknown Physical Exam - Physical Exam General Appearance: Alert, Anxious Respiratory: no respiratory distress, no accessory muscle use Cardiovascular/Chest: regular rate, rhythm Neurologic: no motor/sensory deficits, alert, oriented x 3 Skin Exam: rash - 3cm circular skin excision to left temporal scalp. There is pulsatile hemorrhage appreciated from the central portion of the wound Progress - Progress Progress: 05/11/20 06:33 Patient reassessed, there is no further hemorrhage and there are no pulsatile areas appreciated. Dressing re-applied, will continue home wound care and he will follow up with Dr. Chandler. He will return with any further hemorrhage. - Results/Orders Results/Orders: Laboratory Results - last 24 hr 05/11/20 06:10 Hgb 8.9 L Hct 25.6 L Procedures - Laceration/Wound Repair Left Temporal Wound Repaired With: sutures Suture Size/Type: 5:0, vicryl rapide Number of Sutures: 1 Sterile Dressing Applied?: Yes Progress: 3cm circular surgical wound with central pulsatile bleeding. Direct pressure was applied to the wound and a figure of eight suture was applied around the area of active hemorrhage achieving good hemostasis. Departure - Departure Clinical Impression: Postoperative bleeding from incision Time of Disposition: 06:35 Disposition: Discharge to Home or Self Care Condition: Good Departure Forms: ED Discharge - Pt. Copy, Patient Portal Self Enrollment Diet: resume usual diet Activity: increase activity as tolerated Referrals: Juan Childs III, MD [Primary Care Provider] - 1-2 Weeks Aren Chandler MD [Active Staff] - 1-2 Weeks Home Medications: Ambulatory Orders Carvedilol 25 mg PO DAILY 05/25/19 Gabapentin [Neurontin] 600 mg PO DAILY 05/25/19 Hydralazine HCl [Hydralazine Hydrochloride] 25 mg PO BID 07/26/19 Linagliptin [Tradjenta] 5 mg PO DAILY 07/26/19 Cefdinir [Omnicef] 300 mg PO BID #10 cap 07/30/19 predniSONE [Prednisone] See Taper PO DAILY #30 tab 07/30/19
[2020-05-11 06:44] VITALS: BP 104/70; TEMP 97.8; O2SAT 98
== END 2020-05-11 06:46 | disposition home or self-care (01) ==
LOC: ER 05:18
DX: L76.21 Postprocedural hemorrhage of skin and subcutaneous tissue following a dermatologic procedure (principal); Y83.8 Other surgical procedures as the cause of abnormal reaction of the patient, or of later complication, without mention of misadventure at the time of the procedure; N18.6 End stage renal disease; E11.22 Type 2 diabetes mellitus with diabetic chronic kidney disease; I12.0 Hypertensive chronic kidney disease with stage 5 chronic kidney disease or end stage renal disease; Z85.828 Personal history of other malignant neoplasm of skin; Z99.2 Dependence on renal dialysis; Z87.891 Personal history of nicotine dependence; Z79.899 Other long term (current) drug therapy; J44.9 Chronic obstructive pulmonary disease, unspecified; Z88.5 Allergy status to narcotic agent; Z88.8 Allergy status to other drugs, medicaments and biological substances

== ENCOUNTER 2020-07-06 14:35 | Emergency (ER) | payer MEDICARE, MEDICAID ==
[2020-07-06] MEDS ORDERED: SODIUM CHLORIDE 0.9% 1000ML 1,000 ML IVS ONE (14:40)
[2020-07-06] MEDS ORDERED: ONDANSETRON INJ 4 MG/2 ML VIAL IV ONE (14:41)
--- NOTE | 2020-07-06 14:41 | ED.PDOC ---
History of Present Illness - General Stated Complaint: Bleeding, passed out Time Seen by Provider: 07/06/20 14:39 Additional Information: Hemodialysis Tuesday, last treatment yesterday. - History of Present Illness Initial Comments: Patient disposed excision of mass from the right side of his head by Dr. Chandler 6 days ago. Today while resting at home the lesion suddenly began to bleed spontaneously. There was no fall or history of trauma. The patient walked into the emergency department bleeding heavily. He passed out momentarily. Complains of weakness and near syncope which is better now in a supine position. He also complains of nausea and vomiting onset after the bleeding started. He denies fever chills, chest pain difficulty breathing. Patient states that he was positive for Covid nineteen 1 month ago and had illness without symptoms. Timing/Duration: 1/2 hour Severity: severe Improving Factors: other - Supine position Worsening Factors: other - Erect position Associated Symptoms: nausea/vomiting, weakness Allergies/Adverse Reactions: Allergies Codeine Allergy (Verified 05/11/20 05:35) Lisinopril Allergy (Verified 05/11/20 05:35) Hydrocodone Adverse Reaction (Verified 07/26/19 10:30) Home Medications: Ambulatory Orders Carvedilol 25 mg PO DAILY 05/25/19 Gabapentin [Neurontin] 600 mg PO DAILY 05/25/19 Hydralazine HCl [Hydralazine Hydrochloride] 25 mg PO BID 07/26/19 Linagliptin [Tradjenta] 5 mg PO DAILY 07/26/19 Cefdinir [Omnicef] 300 mg PO BID #10 cap 07/30/19 predniSONE [Prednisone] See Taper PO DAILY #30 tab 07/30/19 Review of Systems - Review of Systems Constitutional: States: weakness - Generalized. Denies: chills, fever EENTM: States: no symptoms reported Respiratory: States: no symptoms reported Cardiology: States: syncope Gastrointestinal/Abdominal: States: nausea, vomiting. Denies: abdominal pain Genitourinary: States: no symptoms reported Musculoskeletal: States: no symptoms reported Skin: States: see HPI Neurological: States: no symptoms reported Endocrine: States: no symptoms reported Hematologic/Lymphatic: States: no symptoms reported Past Medical History (General) - Patient Medical History Hx Seizures: No Hx Stroke: No Hx Dementia: No Hx Asthma: No Hx of COPD: Yes Hx Cardiac Disorders: No - high cholesterol Hx Congestive Heart Failure: No Hx Pacemaker: No Hx Hypertension: Yes Hx Thyroid Disease: No Hx Diabetes: Yes - takes "a pill " Hx Gastroesophageal Reflux: No 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 Bleeding controlled with pressure dressing. Progress - Progress Progress: 07/06/20 14:56 Normal saline infusion 500 mL bolus. 07/06/20 15:22 3:05 PM: Discussed with operating surgeon, Dr. Chandler: Requests wound exploration in ED and ligature of any bleeding vessels encountered. Wound was explored. There was a 2 cm circular wound with base of healing granulation tissue. The base of the wound was dry and there was no active bleeding. A nonstick tightly compressive dressing was applied along with N eosporin ointment to the surgical wound. 07/06/20 17:32 Patient feels good now. He is warm and dry with normal vital signs which do not change upon sitting or standing. He is amenable to discharge. Treatment plan at home, signs and symptoms which would require patient to return to the emergency department were explained to the patient and his son. - Results/Orders Results/Orders: Electrocardiogram: Normal sinus rhythm, 84-minute. No significant interval changes. No acute STT changes. 07/06/20 14:40 TYPE AND SCREEN Stat Sodium Chloride 0.9% 1000ML [Ns 1000 ml] 1,000 ml IVS ONCE 07/06/20 14:45 EKG STAT 07/06/20 14:59 Sodium Chloride 0.9% 1000ML [Ns 1000 ml] 500 ml IVS ONCE Laboratory Results - last 24 hr 07/06/20 07/06/20 07/06/20 14:40 14:40 14:40 WBC 9.8 RBC 4.06 L Hgb 11.6 L Hct 36.1 L MCV 88.8 MCH 28.6 MCHC 32.2 L RDW 19.0 H Plt Count 290 MPV 7.8 Absolute Neuts (auto) 4.20 Absolute Lymphs (auto) 4.50 H Absolute Monos (auto) 0.80 Absolute Eos (auto) 0.20 Absolute Basos (auto) 0.10 Neutrophils % 43.1 Lymphocytes % 45.9 Monocytes % 8.5 Eosinophils % 1.6 Basophils % 0.9 PT 10.5 INR 1.06 PTT (SP) 23.3 Sodium 137 Potassium 4.4 Chloride 98 L Carbon Dioxide 25 Anion Gap 18.4 H BUN 34 H Creatinine 4.98 H BUN/Creatinine Ratio 6.8 L Random Glucose 103 Serum Osmolality 281.7 Calcium 9.1 Total Bilirubin 0.3 AST 15 ALT 10 Alkaline Phosphatase 95 Creatine Kinase 63 CK-MB (CK-2) 2.2 CK-MB (CK-2) % Not Reportable Troponin I < 0.02 Serum Total Protein 8.0 Albumin 4.0 Globulin 4.0 H Albumin/Globulin Ratio 1.0 L Patient ABO/Rh 07/06/20 14:40 WBC RBC Hgb Hct MCV MCH MCHC RDW Plt Count MPV Absolute Neuts (auto) Absolute Lymphs (auto) Absolute Monos (auto) Absolute Eos (auto) Absolute Basos (auto) Neutrophils % Lymphocytes % Monocytes % Eosinophils % Basophils % PT INR PTT (SP) Sodium Potassium Chloride Carbon Dioxide Anion Gap BUN Creatinine BUN/Creatinine Ratio Random Glucose Serum Osmolality Calcium Total Bilirubin AST ALT Alkaline Phosphatase Creatine Kinase CK-MB (CK-2) CK-MB (CK-2) % Troponin I Serum Total Protein Albumin Globulin Albumin/Globulin Ratio Patient ABO/Rh A POSITIVE Vital Signs - 24 hr 07/06/20 07/06/20 07/06/20 14:40 14:50 15:03 Temperature 96.4 F L Pulse Rate [ 94 H 88 left brachial] Respiratory 20 17 Rate Blood Pressure 98/61 108/72 [left brachial] O2 Sat by Pulse 96 95 94 L Oximetry 07/06/20 07/06/20 07/06/20 15:39 15:55 16:00 Temperature 97.9 F Pulse Rate [ 82 80 77 left brachial] Respiratory 15 19 14 Rate Blood Pressure 126/78 121/75 119/75 [left brachial] O2 Sat by Pulse 97 95 95 Oximetry 07/06/20 07/06/20 07/06/20 16:53 17:27 17:33 Temperature 98.2 F Pulse Rate [ 78 84 82 left brachial] Respiratory 14 16 16 Rate Blood Pressure 114/72 117/68 117/68 [left brachial] O2 Sat by Pulse 95 98 96 Oximetry Departure - Departure Clinical Impression: Postoperative wound bleeding, Syncope due to hypovolemia Disposition: Discharge to Home or Self Care Condition: Good Departure Forms: ED Discharge - Pt. Copy, Patient Portal Self Enrollment Instructions: Bleeding After Surgery Referrals: Juan Childs III, MD [Primary Care Provider] - 1-2 Weeks Home Medications: Ambulatory Orders Carvedilol 25 mg PO DAILY 05/25/19 Gabapentin [Neurontin] 600 mg PO DAILY 05/25/19 Hydralazine HCl [Hydralazine Hydrochloride] 25 mg PO BID 07/26/19 Linagliptin [Tradjenta] 5 mg PO DAILY 07/26/19 Cefdinir [Omnicef] 300 mg PO BID #10 cap 07/30/19 predniSONE [Prednisone] See Taper PO DAILY #30 tab 07/30/19 Additional Instructions: Keep the pressure dressing in place for at least 24 hours. Contact your surgeon, Dr. Chandler, tomorrow. Remain at rest and avoid prolonged walking or standing. Return if you have recurrent bleeding or passout or are feeling very weak.
[2020-07-06] MEDS ORDERED: SODIUM CHLORIDE 0.9% 1000ML 500 ML IVS ONE (14:59)
[2020-07-06] MEDS ORDERED: LIDOCAINE 1% W/ EPINEPHRINE 20 ML VIAL INJ ONE (15:09)
[2020-07-06] MEDS ORDERED: NEOMYCIN-BACITRACIN-POLYMYXIN 0.9 GM UD TOP ONE (15:11)
[2020-07-06] MEDS ORDERED: ACETAMINOPHEN 325 MG TAB ONE (15:40)
[2020-07-06] MEDS ORDERED: ACETAMINOPHEN 325 MG TAB PO ONE (15:40)
[2020-07-06 17:33] VITALS: BP 117/68
[2020-07-06 17:35] VITALS: TEMP 98.2; O2SAT 96
== END 2020-07-06 17:33 | disposition home or self-care (01) ==
LOC: ER 14:35
DX: L76.21 Postprocedural hemorrhage of skin and subcutaneous tissue following a dermatologic procedure (principal); Y83.8 Other surgical procedures as the cause of abnormal reaction of the patient, or of later complication, without mention of misadventure at the time of the procedure; R55 Syncope and collapse; E86.1 Hypovolemia; R53.1 Weakness; J44.9 Chronic obstructive pulmonary disease, unspecified; E78.00 Pure hypercholesterolemia, unspecified; I12.0 Hypertensive chronic kidney disease with stage 5 chronic kidney disease or end stage renal disease; E11.22 Type 2 diabetes mellitus with diabetic chronic kidney disease; N18.6 End stage renal disease; Z99.2 Dependence on renal dialysis; Z85.828 Personal history of other malignant neoplasm of skin; Z79.899 Other long term (current) drug therapy; Z88.5 Allergy status to narcotic agent; Z88.8 Allergy status to other drugs, medicaments and biological substances; Z86.16 Personal history of COVID-19
CPT/HCPCS: 36415; 80053; 82550; 82553; 84484; 85025; 85610; 85730; 86850; 86900; 86901; 93005; J2405; J7030

== ENCOUNTER → 2020-07-11 | Outpatient (CLI) | payer MEDICARE, MEDICAID ==
--- NOTE | 2020-07-11 09:27 | RAD ---
EXAM DESCRIPTION: Knee,Right Complete CLINICAL HISTORY: PAIN IN RIGHT KNEE COMPARISON: None. FINDINGS: 3 standing views of the right knee show no acute fracture, focal bone destruction, or joint dislocation. Mild narrowing of the medial tibiofemoral compartment. Mild joint line osteophytes of the medial and lateral tibiofemoral compartments. Mild posterior superior osteophyte of the patella. Moderate enthesophyte of the anterior superior patella. Soft tissues are unremarkable. No joint effusion. IMPRESSION: Mild to moderate 3 compartment osteoarthritic changes of the right knee are seen. Electronically signed by: Rusty Shultz MD 07/11/2020 9:26 AM [facility]
== END ==
LOC: GMAL 09:01
PROVIDERS: ATTEND Family Medicine
DX: M17.11 Unilateral primary osteoarthritis, right knee (principal)